=== PATIENT | male | born 1960 | race Caucasian/White ===

== ENCOUNTER 2018-11-16 14:48 | Observation (INO) ==
[2018-11-16] MEDS ORDERED: Isovue-370 500 ML BOTTLE IVP ONE (16:01)
--- NOTE | 2018-11-16 16:12 | Emergency Department Note ---
Disposition Clinical Impression: Binocular vision disorder with diplopia Disposition: Admitted As Inpatient Condition: Good Time of Disposition: 15:09 Eye Problem HPI - General Chief complaint: ED Eye Problems Stated complaint: worsening double vision Time Seen by Provider: 11/16/18 14:55 Source: patient Limitations: no limitations - History of Present Illness HPI Narrative: Mr. Brown is a 58 yo man who presented from to the ED for evaluation of worsening double vision of 2 days duration. He states that upon waking on 11/15/18, he saw "two of everything" when he looked to the left, then this morning he also saw double when looking straight ahead. He does not see double when covering either eye with a patch. He has also had a frontal headache he r ates at 3-4/10 without nausea or vomiting that improves with ibuprofen. He does not see halos around lights, or streaks of light. He has had intermittent chest pain for the past several days. He denies fever, SOB, weakness, numbness, sensory changes, GI complaints, symptoms or other acute symptoms. He has not been ill recently apart from an "ear infection" in the right ear diagnosed in July that has since resolved. He denies sick contacts, dietary changes or recent travel. PMH is significant for HTN. He has no history of stroke, MD, DVT, bleeding disorders, glaucoma, diabetes or neurological disorders. He had a retinal detachment 3 years ago in the left eye. He does not use contacts. He does use reading glasses and has astigmatism, per patient. He is on lisinopril and does not take any other medications regularly, either prescribed or OTC. He is on a CPAP machine at home but is unclear as to why. He has never smoked. He drinks alcohol once every 2 to 3 months. He does not use other drugs. Pt Subjective Complaint: vision change Onset (ago): day(s) (Two) Onset description: sudden Duration: constant Location: both eyes Mechanism: none Pain Severity: mild Associated symptoms: Reports: headache Treatments Prior to Arrival: OTC eye drops, eyepatch - Related Data Home Medications Medication Instructions Recorded Confirmed Lisinopril [Zestril] 40 mg PO DAILY 07/27/15 11/16/18 Previous Rx's Medication Instructions Recorded Ondansetron HCl [Zofran] 4 mg PO TID #15 tablet 08/04/18 Allergies Allergy/AdvReac Type Severity Reaction Status Date / Time No Known Allergies Allergy Verified 08/04/18 18:57 All systems ED: reviewed and negative except as stated. Eyes: Reports: eye pain, vision change ENT ED: Reports: other (Ringing in ears (chronic)) Cardiovascular: Reports: chest pain (Worse with exertion) Musculoskeletal: Reports: arthralgia (Ruptured disk in neck) Integumentary: Reports: rash (Itchy, small bumps on right forearm after pulling weeds that improves with hydrocortisone) Past Medical History - Past Medical History Source: patient Medical history: Reports: arthritis, hypertension, other (Retinal detachment (left eye)) Surgical history: Reports: no surgical history Psychiatric history: Reports: no psych history - Social History Smoking Status: Never smoker Smokeless Tobacco Status: No Alcohol use: Reports: rarely Last drink: unknown Drug use: Reports: none Physical Exam PE Constitutional: AOx3, responsive, no apparent distress, appropriate affect ENT: Ears without inflammation or effusion bilaterally. Pupils equal and reactive. Pain in left eye when looking to the right. No discharge, no conjunctival injection, no nystagmus on exam. Cardio: Regular rhythm and rate on auscultation. No murmurs. No carotid bruits on auscultation. Limbs well-perfused. No cyanosis. Resp: Lungs clear to ausculation in all zavaleta bilaterally. No cough or SOB. GI: Abdomen soft, nondistended, nontender. No abdominal bruit on auscultation. : No suprapubic tenderness or distention. MSK: No joint edema or inflammation. Normal ROM UE and LE bilaterally. Pruritic papular rash along right extensor surface of forearm. Neuro: CNI-XII intact. Possible facial asymmetry with right eye droop. Strength 5/5 UE and LE bilaterally. No sensory deficits on exam. NIHSS score: 0. - General Limitations: no limitations General appearance: alert, in no apparent distress Course Course Narrative: Workup for TIA/stroke event instituted, with LKW approximately 48 hours ago and with no deficits visible on PE, and EKG performed to r/o MD given recent CP on exertion with history of HTN and acute onset diplopia. EKG: No acute changes. PVCs comparable to prior EKG (11/01/2001). Troponin: WNL CT head/neck: CTA: BMP: Not significant (WNL apart from glucose 122) CBC: WNL - Reevaluation(s) Reevaluation #1: US of left eye performed. Normal findings. No indications of retinal detachment, inflammation or IOP. Time: 16:55 Reevaluation #2: No acute changes. Patient comfortable. Discussed neurology consult's recommendation for admission 2/2 possible pontine stroke subsequent to CTA report. Patient and family agreed with plan. Time: 18:20 Vital Signs Temperature 98.4 F 11/16/18 14:49 Pulse Rate 87 11/16/18 14:49 Respiratory Rate 16 11/16/18 14:49 Blood Pressure 189/77 11/16/18 14:49 O2 Sat by Pulse Oximetry 96 11/16/18 14:49 Temperature 98.4 F 11/16/18 15:00 Pulse Rate 69 11/16/18 17:14 Respiratory Rate 18 11/16/18 17:14 Blood Pressure 133/83 11/16/18 17:14 O2 Sat by Pulse Oximetry 98 11/16/18 17:14 Oxygen Delivery Oxygen Delivery Nasal Cannula Eye - Medical Records Medical records reviewed: Yes I reviewed the patient's medical records. - Lab Data Lab results reviewed: Yes I reviewed the patient's lab results. Result diagrams: 11/16/18 16:08 11/16/18 16:08 Lab Results 11/16/18 11/16/18 11/16/18 Range/Units 16:08 16:08 16:08 WBC 8.7 (4.3-11.1) K/mcL RBC 4.73 (4.19-5.50) M/mcL Hgb 14.0 (12.9-16.9) g/dL Hct 43.9 (37.5-50.1) % MCV 92.8 (83.0-100.0) fL MCH 29.6 (28.0-33.3) pg MCHC 31.9 (31.6-35.5) g/dL RDW 13.6 (11.5-14.5) % Plt Count 228 (140-400) K/mcL MPV 10.1 (9.4-12.4) fL PT 12.2 H (9.4-12.1) Seconds INR 1.1 APTT 38.5 H (26.0-36.0) Seconds Sodium 140 (136-145) mEq/L Potassium 4.2 (3.5-5.1) mEq/L Chloride 106 (98-107) mEq/L Carbon Dioxide 28 (23-29) mEq/L BUN 14 (8-23) mg/dL Creatinine 0.99 (0.70-1.30) mg/dL Est GFR ( Amer) > 60 (> 60) Est GFR (Non-Af Amer) > 60 (> 60) BUN/Creatinine Ratio 14 (6-26) Glucose 122 H (70-105) mg/dL Calculated Osmolality 292 (280-300) Calcium 9.5 (8.6-10.3) mg/dL Troponin I < 0.03 (< 0.04) ng/mL - Radiology Data Radiology results reviewed: Yes I reviewed the patient's radiology results. Angiography CT 11/16/18 16:04 IMPRESSION: 1. No acute intracranial abnormality on the noncontrast CT. 2. There focal narrowing involving the posterior aspect of the right posterior cerebral artery. 3. There is mild irregularity of the small branch contours of the MCA branches in the sylvian fissures bilaterally. Artifact is favored over mild multifocal narrowing. 4. D/ / Fer Theodore / Fer Theodore Interpreting Provider: Fer Theodore - EKG Data EKG attestation: Yes I reviewed and interpreted this EKG. EKG shows normal: sinus rhythm Rate: normal Rhythm: NSR, PVC's When compared to previous EKG there are: no significant changes Interpretation: no acute changes NIH Stroke Scale - LOC Questions LOC Questions: Answers both correctly - LOC Commands LOC Commands: Performs both correctly - Best Gaze Best Gaze: Normal - Visual Visual: No visual loss - Facial Palsy Facial Palsy: Normal - Motor Arms Motor Arm-Left: No drift for 10 seconds Motor Arm-Right: No drift for 10 seconds - Motor Legs Motor Leg-Left: No drift for 5 seconds Motor Leg-Right: No drift for 5 seconds - Limb Ataxia Limb Ataxia: Normal, No Ataxia - Sensory Sensory: Normal - Best Language Best Language: No aphasia - Dysarthria Dysarthria: Normal - Extinction and Inattention Extinction and Inattention: Normal - Pupil Exam Left Pupil Reaction: Brisk Pupil Size: 3
[2018-11-16 16:50] LABS: Hematocrit 43.9 % (37.5-50.1); Mean Corpuscular HGB Conc 31.9 g/dL (31.6-35.5); Mean Corpuscular Hemoglobin 29.6 pg (28.0-33.3); Mean Corpuscular Volume 92.8 fL (83.0-100.0); Mean Platelet Volume 10.1 fL (9.4-12.4); Platelet Count 228 K/mcL (140-400); Red Blood Count 4.73 M/mcL (4.19-5.50); Red Cell Distribution Width 13.6 % (11.5-14.5); White Blood Count 8.7 K/mcL (4.3-11.1)
[2018-11-16 16:58] LABS: INR 1.1; Prothrombin Time 12.2 Seconds (9.4-12.1)
[2018-11-16 17:01] LABS: Activated Partial Thrombo Time 38.5 Seconds (26.0-36.0)
[2018-11-16 17:11] LABS: BUN/Creatinine Ratio 14 (6-26); Blood Urea Nitrogen 14 mg/dL (8-23); Calcium 9.5 mg/dL (8.6-10.3); Carbon Dioxide 28 mEq/L (23-29); Chloride 106 mEq/L (98-107); Glucose 122 mg/dL (70-105); Osmolality,Calculated 292 (280-300); Potassium 4.2 mEq/L (3.5-5.1); Sodium 140 mEq/L (136-145); eGFR For African Americans > 60 (> 60); eGFR For Non-African Americans > 60 (> 60)
[2018-11-16 17:12] LABS: Troponin I < 0.03 ng/mL (< 0.04)
--- NOTE | 2018-11-16 18:21 | Emergency Department Note ---
Disposition Clinical Impression: Binocular vision disorder with diplopia Disposition: Admitted As Inpatient Condition: Good Referrals: Munir Cole DO [Primary Care Provider] - Forms: ED Satisfaction Letter Time of Disposition: 18:24 General Adult HPI - General Chief complaint: ED Eye Problems Stated complaint: worsening double vision Time Seen by Provider: 11/16/18 14:55 Source: patient Limitations: no limitations - History of Present Illness Pain Scale: 0 - Related Data Home Medications Medication Instructions Recorded Confirmed Lisinopril [Zestril] 07/27/15 Previous Rx's Medication Instructions Recorded Ondansetron HCl [Zofran] 4 mg PO TID #15 tablet 08/04/18 Allergies Allergy/AdvReac Type Severity Reaction Status Date / Time No Known Allergies Allergy Verified 08/04/18 18:57 Eyes: Reports: eye pain, vision change ENT ED: Reports: other (Ringing in ears (chronic)) Cardiovascular: Reports: chest pain (Worse with exertion) Musculoskeletal: Reports: arthralgia (Ruptured disk in neck) Integumentary: Reports: rash (Itchy, small bumps on right forearm after pulling weeds that improves with hydrocortisone) Past Medical History - Past Medical History Medical history: Reports: arthritis, hypertension, other (Retinal detachment (left eye)) Surgical history: Reports: no surgical history Psychiatric history: Reports: no psych history - Social History Smoking Status: Never smoker Smokeless Tobacco Status: No Alcohol use: Reports: rarely Drug use: Reports: none Physical Exam - General Limitations: no limitations General appearance: alert, in no apparent distress Course - Consultations Consultation #1: discussed case with dr. Sneed (neurology) and he recommends admision to the hospital for MRI and stroke workup as a pontine stroke can cause binocular diplopia =. I have discussed with patient and he is agreeable to plan. Time: 18:19 Vital Signs Temperature 98.4 F 11/16/18 14:49 Pulse Rate 87 11/16/18 14:49 Respiratory Rate 16 11/16/18 14:49 Blood Pressure 189/77 11/16/18 14:49 O2 Sat by Pulse Oximetry 96 11/16/18 14:49 Temperature 98.4 F 11/16/18 15:00 Pulse Rate 69 11/16/18 17:14 Respiratory Rate 18 11/16/18 17:14 Blood Pressure 133/83 11/16/18 17:14 O2 Sat by Pulse Oximetry 98 11/16/18 17:14 Oxygen Delivery Oxygen Delivery Nasal Cannula Medical Decision Making - Lab Data Result diagrams: 11/16/18 16:08 11/16/18 16:08 Lab Results 11/16/18 11/16/18 11/16/18 Range/Units 16:08 16:08 16:08 WBC 8.7 (4.3-11.1) K/mcL RBC 4.73 (4.19-5.50) M/mcL Hgb 14.0 (12.9-16.9) g/dL Hct 43.9 (37.5-50.1) % MCV 92.8 (83.0-100.0) fL MCH 29.6 (28.0-33.3) pg MCHC 31.9 (31.6-35.5) g/dL RDW 13.6 (11.5-14.5) % Plt Count 228 (140-400) K/mcL MPV 10.1 (9.4-12.4) fL PT 12.2 H (9.4-12.1) Seconds INR 1.1 APTT 38.5 H (26.0-36.0) Seconds Sodium 140 (136-145) mEq/L Potassium 4.2 (3.5-5.1) mEq/L Chloride 106 (98-107) mEq/L Carbon Dioxide 28 (23-29) mEq/L BUN 14 (8-23) mg/dL Creatinine 0.99 (0.70-1.30) mg/dL Est GFR ( Amer) > 60 (> 60) Est GFR (Non-Af Amer) > 60 (> 60) BUN/Creatinine Ratio 14 (6-26) Glucose 122 H (70-105) mg/dL Calculated Osmolality 292 (280-300) Calcium 9.5 (8.6-10.3) mg/dL Troponin I < 0.03 (< 0.04) ng/mL Attestation Statement - Attestation Attestation: I reviewed the residents documentation and agree with the residents assessment and plan of care. I have personally had face to face time with the patient. (Brief History, Brief Exam, and MDM) I personally supervised and was present for the nicholas/critical portions of the following procedures completed by the resident: EKG/US 58 year old male presents to the ED with worsening binocular diplopia today which started before he went to bed yesterday. PAtivijay state tht if he covers up one eye it improves but does not go away .Rupal has not previosu history for stroke although he has risk factors for it. Concern is for stroke vs intraocular pathology. Bedside US of ocular exam does not show a retinal detachment and eye exam is otherwise normal.
[2018-11-16] MEDS ORDERED: Aspirin 325 MG TABLET PO ONE (19:45)
[2018-11-16] MEDS ORDERED: Ondansetron 4 MG/2 ML VIAL IVP PRN (19:49)
[2018-11-16 20:03] LABS: Estimated Average Glucose 148 mg/dl
[2018-11-16 20:13] LABS: Chol/HDL Ratio 4.6 (0-4.9); Cholesterol 170 mg/dL (< 200); HDL Cholesterol 37 mg/dL (40-59); LDL Cholesterol,Calculated 120 mg/dL (0-99); Triglycerides 66 mg/dL (< 150)
[2018-11-16 20:26] LABS: Thyroid Stimulating Hormone 0.964 mcIU/mL (0.340-5.600)
--- NOTE | 2018-11-16 20:56 | Internal Med History&Physical ---
Date of Encounter: 11/16/18 Time of Encounter: 20:54 Internal Medicine - H&P: HPI Chief complaint: double vision Admitted From: Home Plans for Post Hospital Care: Home History of present illness: Vladislav Brown is a 58 year old man with hypertension who woke up yesterday noticing double vision in his left field of vision accompanied by an occipital headache and this morning worsened to include the frontal view but his right field of vision remains spared. He denies focal extremity weakness but has mild dizziness and is complaining of some mild left facial numbness now. He has not been adherent to his antihypertensive therapy. Family history remarkable for cancer in father and COPD in sister. Vitals: Reviewed General: Well developed obese white man lying in bed in NAD Skin: Warm and dry. HEENT: Moist mucous membranes. No conjunctivae pallor. PERRLA. EOMI. No nystagmus. Neck: No lymphadenopathy. No JVD. No carotid bruits. No palpable thyroid. Chest: Normal thoracic expansion. Normal breath sounds. Clear to auscultation. Heart: Normal S1 & S2; rhythmic. No rubs or murmurs. Abdomen: Non-distended, soft and non-tender to palpation. No peritoneal reaction. Extremities: No clubbing, cyanosis or edema. No calf tenderness. Normal distal pulses. Neurological: Awake, alert and oriented to person, place and time. No focal deficits. Psych: Affect appropriate. Assessment/Plan 1. Acute onset diplopia: Suspect secondary to ischemic infarct likely affecting the occipital lobe. Will have him seen by neurology tomorrow and schedule him for brain MRI. Check lipid panel, A1c, echo. 2. Hypertension: Poorly controlled secondary to non-adherence. Will allow his current BP values for now and resume his home antihypertensive medication in the morning. 3. Obesity: Counseled and educated on therapeutic lifestyle changes for weight loss as it will be of benefit in controlling comorbidities. Subcontract Administrator evaluation advised. 4. DVT prophylaxis: SubQ heparin ordered. Past Med Surg Social Fam HX - Past Medical History Medical history: arthritis, hypertension, other Additional medical history: skin CA Psychiatric history: no psych history - Past Surgical History Surgical History: no surgical history - Social History Smoking Status: Never smoker Smokeless Tobacco Status: No Alcohol use: rarely Drug use: none Internal Medicine - H&P: Meds Lisinopril [Zestril] 40 mg PO DAILY 07/27/15 [History] Ondansetron HCl [Zofran] 4 mg PO TID #15 tablet 08/04/18 [Rx] Allergy/AdvReac Type Severity Reaction Status Date / Time No Known Allergies Allergy Verified 08/04/18 18:57 All Systems PM: A 10-system review of systems was performed and is negative for pertinent findings except as documented above in the HPI. - Constitutional Vitals: Temp Pulse Resp BP Pulse Ox 98 F 82 16 164/84 97 11/16/18 20:23 11/16/18 20:23 11/16/18 20:23 11/16/18 20:23 11/16/18 20:23 Exam: . Internal Med - H&P Results - Labs CBC & Chem 7: 11/16/18 16:08 11/16/18 16:08 Labs: Short CBC 11/16/18 Range/Units 16:08 WBC 8.7 (4.3-11.1) K/mcL Hgb 14.0 (12.9-16.9) g/dL Hct 43.9 (37.5-50.1) % Plt Count 228 (140-400) K/mcL BMP 11/16/18 16:08 Sodium 140 Potassium 4.2 Chloride 106 Carbon Dioxide 28 BUN 14 Creatinine 0.99 Glucose 122 H Calcium 9.5 Cardiac Enzymes 11/16/18 Range/Units 16:08 Troponin I < 0.03 (< 0.04) ng/mL - Impressions ITS Impressions Angiography CT 11/16/18 16:04 IMPRESSION: 1. No acute intracranial abnormality on the noncontrast CT. 2. There focal narrowing involving the posterior aspect of the right posterior cerebral artery. 3. There is mild irregularity of the small branch contours of the MCA branches in the sylvian fissures bilaterally. Artifact is favored over mild multifocal narrowing. 4. D/ / Fer Theodore / Fer Theodore Interpreting Provider: Fer Theodore - Time Spent With Patient Total time spent is greater than 50% in coordination of care (as documented) at patient's floor/unit and/or counseling patient: Greater than 35 minutes
[2018-11-17] MEDS: Acetaminophen 325 MG TABLET PO PRN ×2 (05:15→15:38)
[2018-11-17] MEDS ORDERED: *HR* Heparin 5,000 UNIT/ML VIAL SQ SCH (06:00)
[2018-11-17] MEDS ORDERED: Perflutren Lipid Microsphere 1.3 ML in 0.9 % Sodium Chloride 8.7 ML IVP ONE (08:22)
[2018-11-17] MEDS ORDERED: Lisinopril 20 MG TABLET PO SCH (09:00)
[2018-11-17] MEDS ORDERED: Aspirin 81 MG TAB.CHEW PO SCH (09:00)
[2018-11-17 11:12] VITALS: BP 146/87
--- NOTE | 2018-11-17 12:55 | Neurology - Consult Note ---
<hCapo Hamilton - Last Filed: 11/17/18 12:49> Date of Encounter: 11/17/18 Time of Encounter: 12:49 Assessment and Plan (1) Binocular vision disorder with diplopia Status: Acute Neurology consulted with concerns for CVA Patient presents with binocular diplopia reporting horizontal diplopia beginning yesterday morning and persisting through today CT angiography shows focal narrowing involving the posterior aspect of the Right posterior cerebral artery -findings are concerning for an ischemic event in the occipital infarct Neurologically he is intact otherwise without any focal or lateralizing findings TTE-EF 60-65%, nondiagnostic for PFO MRI of the brain is pending In the meantime I suggest adding ASA and Statin to his medication regimen -with risk factors he should be on the at d/c for prevention Discussed aggressive risk factor modifications including dietary changes, weight-loss and med compliance c/w neuro assessments per protocol further rec pending completion of w/u c/w medical and supportive care neurology will continue to follow History of Present Illness Chief complaint: binocular diplopia, left facial numbness and occipital headache HPI: Mr. Brown is a 58 year old male with a PMH of arthritis and HTN who presents with a CC of an acute onset of binocular horizontal diplopia, left facial numbness and an occipital headache which began yesterday morning and progressed throughout the day. He denies any prior h/o CVA/TIA. Today he reports that the diplopia persists as does the headache, but the facial numbness has resolved. CT angiography was obtained and shows no acute intracranial abnormality, but there is focal narrowing involving the posterior aspect of the right posterior cerebral artery. He denies any dysphagia, dysarthria, facial asymmetry, speech/language disturbances, or focal weakness. The workup reveals HLD and DM which was previously unknown to Mr. Brown. TSH was within the expected range of 0.964. Neurology will follow and provide recommendations. Past Med Surg Social Fam HX - Past Medical History Medical history: arthritis, hypertension, other Additional medical history: skin CA Psychiatric history: no psych history - Past Surgical History Surgical History: no surgical history - Social History Smoking Status: Never smoker Smokeless Tobacco Status: No Alcohol use: rarely Drug use: none - Family History Father Living Status: Age at : 83 Hx Family Cardiac Disorders: No Hx Family Respiratory Disorders: Yes (Bronchitis.) Hx Family Cancer: Yes (Bladder) Hx Family GI Disorders: No Hx Family Genitourinary Disorders: No Hx Family Endocrine Disorder: No Hx Family Musculoskeletal Disorders: No Hx Family Neuromuscular Disorders: No Hx Family Neurologic Disorders: No Hx Family HEENT Disorders: No Hx Family Autoimmune Disorders: No Hx Family Reproductive Disorders: No Hx Family Psychosocial Disorders: No Hx Family Medical Disorders: No Mother Living Status: Still Living Age at : 92 Hx Family Cardiac Disorders: Yes (Irregular heart beat) Hx Family Respiratory Disorders: No Hx Family Cancer: No Hx Family GI Disorders: No Hx Family Genitourinary Disorders: No Hx Family Endocrine Disorder: No Hx Family Musculoskeletal Disorders: No Hx Family Neuromuscular Disorders: No Hx Family Neurologic Disorders: No Hx Family HEENT Disorders: No Hx Family Autoimmune Disorders: No Hx Family Reproductive Disorders: No Hx Family Psychosocial Disorders: No Hx Family Medical Disorders: No Medications and Allergies Lisinopril [Zestril] 40 mg PO DAILY 07/27/15 [History] Ondansetron HCl [Zofran] 4 mg PO TID #15 tablet 08/04/18 [Rx] Aspirin 81 mg PO DAILY #30 tab.chew 11/17/18 [Rx] Atorvastatin [Lipitor] 40 mg PO HS #30 tablet 11/17/18 [Rx] Allergy/AdvReac Type Severity Reaction Status Date / Time No Known Allergies Allergy Verified 08/04/18 18:57 All Systems: The remainder of the systems were reviewed and are negative Review of Systems: REVIEW OF SYSTEMS NEUROLOGIC: Negative for any facial asymmetry, dysphagia, dysarthria, hemiparesis, hemisensory deficits, vertigo, ataxia, seizures, paralysis, tingling, numbness, unilateral weakness Positive- left eye horizontal diplopia, left facial numbness, lightheadedness CARDIAC: Negative for any chest pain, dyspnea, peripheral edema, or palpitations MUSCULOSKELETAL: Negative loss of strength Physical Examination - Vital Signs Vital Signs: Initial Vital Signs Temp Pulse Resp BP Pulse Ox 98.4 F 87 16 189/77 96 11/16/18 14:49 11/16/18 14:49 11/16/18 14:49 11/16/18 14:49 11/16/18 14:49 - Exam Exam: Examination: General Examination: *CONSTITUTIONAL: Alert and oriented x3, no acute distress *GENERAL APPEARANCE OF PATIENT obese elderly male who appears well groomed *EYES: pupils are round, reactive to light and accommodation, conjunctiva clear without masses or ulcerations, fundi normal. *CARDIOVASCULAR: RRR, no peripheral edema, distal temperature normal, dorsalis pedis pulses normal. Refer to vital signs * MUSCULOSKELETAL: *GAIT AND STATION: Deferred *ASSESSMENT OF MUSCLE STRENGTH IN THE UPPER AND LOWER EXTREMITIES bilateral deltoid, bicep, tricep, denture model maker strength, hip flexors ,anterior tibialis, dorsoflexion of the foot 5/5 *MUSCLE TONE IN THE UPPER AND LOWER EXTREMITIES normal. No abnormal movements, fasciculations or atrophy identified. Neurological: *ORIENTATION to person, situation, time and place *LANGUAGE AND FUNCTION no significant aphasia or dysarthia was noted. *ATTENTION AND CONCENTRATION are normal *LANGUAGE FUNCTION no significant aphasia or dysarthia was noted. *FUND OF KNOWLEDGE aware of current events, past history, vocabulary *MENTAL attention span and concentration normal. *CN II optic fundi were normal, no papilledema noted. *CN III,IV, Left pupillary asymettry, Left pupil is greater than right Lt 4mm vs Rt 3mm; He is having monocular left horizontal diplopia but pupils are RRLA, extraocular eye movements were full, no nystagmus and no ptosis noted. *CN V shows normal sensation and jaw opens symmetrically. *CN VII shows normal facial movement symmetrically, upper and lower bilaterally. *CN VIII shows no significant hearing loss on exam *CN IX-Xpalate elevated symmetrically *CN XI normal strength in the sternocleidomastoid muscles, symmetrical shoulder shrugging. *CN XII tongue protruded in the midline, with normal strength and movement. *SENSORY EXAMINATION deep and light touch intact *REFLEXES: deep tendon reflexes were diminished diffusely, no pathological reflexes were noted. *CEREBELLAR TESTING normal finger to nose, heel/knee/perez *PAIN LEVEL 0/10 Results - Laboratory Findings CBC and BMP: 11/16/18 16:08 11/16/18 16:08 Abnormal lab findings: Abnormal lab results PT 12.2 Seconds (9.4-12.1) H 11/16/18 16:08 APTT 38.5 Seconds (26.0-36.0) H 11/16/18 16:08 Glucose 122 mg/dL (70-105) H 11/16/18 16:08 Hemoglobin A1c 6.8 % (-5.6) H 11/16/18 16:29 LDL Cholesterol, Calc 120 mg/dL (0-99) H 11/16/18 16:08 HDL Cholesterol 37 mg/dL (40-59) L 11/16/18 16:08 - Diagnostic Findings Additional findings: CT/CT angio head wo/w con IMPRESSION: 1. No acute intracranial abnormality on the noncontrast CT. 2. There focal narrowing involving the posterior aspect of the right posterior cerebral artery. 3. There is mild irregularity of the small branch contours of the MCA branches in the sylvian fissures bilaterally. Artifact is favored over mild multifocal narrowing. 4. EV/EV echocardiogram Impressions: LVEF 60-65%. Normal LV chamber size, wall thickness and function. Normal right ventricular structure and function. No significant valvular dysfunction. Unable to estimate RVSP due to lack of IVC visualization. Non-diagnostic of PFO with agitated saline contrast. Consult Discharge Plan - Plan Instructions: Chronic Hypertension (DC), Diplopia (DC) Additional Instructions: Follow-up appointments: If there is not an appointment listed below, please call your physician and schedule a follow-up appointment. If you have congestive heart failure and your symptoms return, make an appointment with your physician. Medication List: Carry an up to date list of medications you are taking at all time. We have given you an updated medication list including any new medications that you have been prescribed. Please provide that list to your primary provider Symptoms: If your condition changes or you experience any of the following symptoms, notify your physician immediately: Unusual or worsening pain, fever, persistent nausea and vomiting, bleeding, increase in swelling (especially in your legs), sudden weight gain, extreme dizz iness, chest pain, increased drainage or redness from a wound or incision. Go to the emergency department if you experience a problem with breathing. Weights: If you have a history of swelling or shortness of breath, weigh yourself daily and notify your physician if you have a weight gain of two or more pounds in one day or 5 or more pounds in a week. If you experience any of the warning signs for stroke: Sudden numbness or weakness of the face, arm or leg; especially on one side of the body, sudden confusion, trouble speaking or understanding, sudden trouble seeing in one or both eyes, sudden trouble walking, dizziness, loss of balance or coordination, sudden sever headache with no cause; Call 911 or go to the emergency room. Stroke is a medical emergency. Some risk factors for stroke: Age, cigarette smoking, diabetes, excessive alcohol consumption, family history, high blood pressure, overweight, physical inactivity, prior stroke, heart attack, diagnosis of carotid artery stenosis or other artery disease. If you smoke, STOP: Smoking or tobacco use significantly increases your risk of heart and lung disease. Your chance of disease greatly increases if you continue to smoke. For more information, call the [place] tobacco quit line for smoking cessation 4-400-GPHH-NOW ( ) Referrals: Vic Ellsworth [Other] - 11/25/18 9:15 am Munir Cole DO [Primary Care Provider] - 11/25/18 11:15 am Prescriptions: Aspirin 81 mg PO DAILY #30 tab.chew Atorvastatin [Lipitor] 40 mg PO HS #30 tablet <Dasha Proctor I - Last Filed: 11/17/18 16:49> Date of Encounter: 11/17/18 Assessment and Plan (1) Binocular vision disorder with diplopia Status: Acute I have personally performed a face to face diagnostic evaluation, including HPI, EXAM, which is included in the Assesment and plan, which was discussed with Chapo Hamilton CNP, I agree with the above outlined documentation. Patient seen and examined On my neurological examination he did have a subjective double vision in both ey es and horizontal zavaleta without any other clear nerves abnormality and no focal motor deficit on examination He has an history of a stigmatism and also has a history of double vision he seems to be worse recently So far workup has been negative including MRI of the brain that did not show any acute lacunar infarct at the same time echo and CT angiogram is also negative except he did have some focal narrowing of the right posterior cerebral artery Regardless patient is on antiplatelet therapy suggested to continue along with statin Suggest to follow up with primary care as well as with ophthalmology We can seen office in 3-4 weeks or earlier if any new or symptoms Dasha Proctor MD. Neurology History of Present Illness HPI: Mr. Brown is a 58 year old male All Systems: The remainder of the systems were reviewed and are negative Physical Examination - Vital Signs Vital Signs: Initial Vital Signs Temp Pulse Resp BP Pulse Ox 98.4 F 87 16 189/77 96 11/16/18 14:49 11/16/18 14:49 11/16/18 14:49 11/16/18 14:49 11/16/18 14:49 Results - Laboratory Findings CBC and BMP: 11/16/18 16:08 11/16/18 16:08 Abnormal lab findings: Abnormal lab results PT 12.2 Seconds (9.4-12.1) H 11/16/18 16:08 APTT 38.5 Seconds (26.0-36.0) H 11/16/18 16:08 Glucose 122 mg/dL (70-105) H 11/16/18 16:08 Hemoglobin A1c 6.8 % (-5.6) H 11/16/18 16:29 LDL Cholesterol, Calc 120 mg/dL (0-99) H 11/16/18 16:08 HDL Cholesterol 37 mg/dL (40-59) L 11/16/18 16:08
--- NOTE | 2018-11-17 15:23 | Discharge Summary ---
- NOTES TO OUTPATIENT PROVIDER Notes to Outpatient Provider: f/u with PCP in one week. f/u with Opthalmology in 5-[address] until your diplopia improves. Date of Encounter: 11/17/18 Time of Encounter: 15:21 - Discharge Diagnosis (1) Binocular vision disorder with diplopia Priority: Primary Status: Acute (2) HTN (hypertension) Priority: Secondary Status: Acute Qualifiers: Hypertension type: essential hypertension Qualified Code(s): I10 - Essential (primary) hypertension (3) Morbid obesity with BMI of 40.0-44.9, adult Priority: Secondary Status: Acute Hospital course: Mr. Brown is a 58 year old male with known PMH of HTN and Morbid obesity pt presented to ER with double vision in his left field of vision accompanied by an occipital headache. He was admitted in the hospital and placed him on tele. He still c.o double and blurry vision. His Brain MRI did not show acute infarction. His 2 D Echo showed LVEF 60-65% . Pt was evaluated by neurologist, recommended to f/u with Ophthalmology as an out pt. I did request him not to drive until he sees skull chopper and and his diplopia improves. - Time Spent with Patient Total time spent providing and/or coordinating discharge services: - Discharge Medications Prescriptions: New Aspirin 81 mg PO DAILY #30 tab.chew Atorvastatin [Lipitor] 40 mg PO HS #30 tablet Continued Lisinopril [Zestril] 40 mg PO DAILY Ondansetron HCl [Zofran] 4 mg PO TID #15 tablet Home Medications: Lisinopril [Zestril] 40 mg PO DAILY 07/27/15 [History] Ondansetron HCl [Zofran] 4 mg PO TID #15 tablet 08/04/18 [Rx] Aspirin 81 mg PO DAILY #30 tab.chew 11/17/18 [Rx] Atorvastatin [Lipitor] 40 mg PO HS #30 tablet 11/17/18 [Rx] Allergies/Adverse Reactions: Allergy/AdvReac Type Severity Reaction Status Date / Time No Known Allergies Allergy Verified 08/04/18 18:57 Date of admission: 11/16/18 18:56 Primary care physician: René Cole DO Consults: 11/16/18 18:13 Consult to Neurology [CONS] Stat Consulting Provider: [facility] Reason for Consult: binocular diplopia rule out CVA Time Notified: 18:13 Call Completed: Yes - Constitutional Vitals: Temp Pulse Resp BP Pulse Ox 98.4 F 63 16 146/87 95 11/17/18 11:08 11/17/18 11:08 11/17/18 11:08 11/17/18 11:08 11/17/18 11:08 General appearance: Present: cooperative, A&O X 3, no acute distress, answers questions appropriately Exam: a - Head Head exam: Present: atraumatic, normal inspection - Eye Additional comments: still has double / blurry vision - Neck Neck exam general surgery: Present: supple - Respiratory Respiratory exam: Present: decreased breath sounds. Absent: rales, respiratory distress, rhonchi, wheezes - Cardiovascular Cardiovascular exam: Present: RRR, +S1, +S2. Absent: tachycardia - GI/Abdominal GI/Abdominal exam: Present: normal bowel sounds, soft. Absent: rebound, rigid, tenderness - Extremities Exam Extremities exam: Present: normal inspection. Absent: calf tenderness, pedal edema - Back Exam Back exam: Absent: CVA tenderness (L), CVA tenderness (R) - Neurological Exam Neurological exam: Present: alert, CN II-XII intact, oriented X3. Absent: pronater drift, facial droop, speech deficit - Psychiatric Psychiatric exam: Present: normal affect, normal mood - Patient Status Disposition: Home, Self-Care Condition: Good Overall status at discharge: patient is back to baseline - Discharge Instructions Follow Up With: Munir Cole DO [Primary Care Provider] - 11/25/18 11:15 am
--- NOTE | 2018-11-18 14:01 | Electrocardiograph Report ---
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
== END 2018-11-17 15:57 | disposition home or self-care (01) ==
LOC: 3BNU 14:48 → EMEROOARM 14:48 → SUATTDRO 18:56 → 3BNU 19:51
PROVIDERS: ADMIT Student in an Organized Health Care Education/Training Program; ATTEND Family Medicine